=== PATIENT | male | born 2000 | race Caucasian/White ===

== ENCOUNTER 2019-12-30 02:01 | Emergency (ER) | payer OTHER ==
[~2019-12-30] VITALS: Ht 180.3 cm; Wt 126.6 kg
[2019-12-30 02:12] VITALS: Ht 180.3 cm; Wt 126.6 kg
[2019-12-30 03:37] VITALS: BP 136/98
== END 2019-12-30 03:37 | disposition home or self-care (01) ==
LOC: ED 02:01
DX: S09.8XXA Other specified injuries of head, initial encounter (principal); S16.1XXA Strain of muscle, fascia and tendon at neck level, initial encounter; V43.62XA Car passenger injured in collision with other type car in traffic accident, initial encounter; Y93.89 Activity, other specified; Y92.411 Interstate highway as the place of occurrence of the external cause; Y99.8 Other external cause status